=== PATIENT | male | born 1980 | race African-American/Black ===

== ENCOUNTER 2019-06-27 06:57 | Emergency (ER) | payer OTHER ==
[~2019-06-27] VITALS: Ht 180.3 cm; Wt 97.7 kg
[2019-06-27] MEDS ORDERED: ONDANSETRON PF 4 MG/2 ML VIAL. IVP ONE ×2 (07:15→10:30)
[2019-06-27] MEDS ORDERED: IV NORMAL SALINE 1,000ML 1,000 ML IV ONE (07:15)
--- NOTE | 2019-06-27 07:16 | PHYS DOC ---
Adult General Chief Complaint Chief Complaint: abdominal pain HPI HPI 39-year-old male presents with vomiting and abdominal pain. He's had 4 episodes of vomiting this morning. He also has some left lower quadrant abdominal pain. He was concerned there was some speckles of blood in the emesis. He denies di arrhea. The abdominal pain as a mild to moderate cramping sensation. He denies dysuria or increased sure if frequency. He has no fever or chills. He does have diffuse achiness. Review of Systems Review of Systems Constitutional: Denies fever or chills [] Eyes: Denies change in visual acuity, redness, or eye pain [] HENT: Denies nasal congestion or sore throat [] Respiratory: Denies cough or shortness of breath [] Cardiovascular: No additional information not addressed in HPI [] GI: Left lower quadrant abdominal pain, nausea, vomiting. Denies bloody stools or diarrhea [] : Denies dysuria or hematuria [] Musculoskeletal: Denies back pain or joint pain [] Integument: Denies rash or skin lesions [] Neurologic: Denies headache, focal weakness or sensory changes [] Endocrine: Denies polyuria or polydipsia [] All other systems were reviewed and found to be within normal limits, except as documented in this note. Current Medications Current Medications Current Medications Medications (Trade) Dose Ordered Sig/Buck Start Time Stop Time Status Last Admin Dose Admin Ondansetron HCl (Zofran) 4 mg 1X ONCE 06/27/19 07:15 06/27/19 07:16 UNV Sodium Chloride 1,000 ml @ 1,000 mls/hr 1X ONCE 06/27/19 07:15 06/27/19 08:14 UNV Physical Exam Physical Exam Constitutional: Well developed, well nourished, no acute distress, non-toxic appearance. [] HENT: Normocephalic, atraumatic, bilateral external ears normal, oropharynx moist, no oral exudates, nose normal. [] Eyes: PERRLA, EOMI, conjunctiva normal, no discharge. [] Neck: Normal range of motion, no tenderness, supple, no stridor. [] Cardiovascular:Heart rate regular rhythm, no murmur [] Lungs & Thorax: Bilateral breath sounds clear to auscultation [] Abdomen: Bowel sounds normal, soft, LLQ tenderness without guarding, no masses, no pulsatile masses. [] Skin: Warm, dry, no erythema, no rash. [] Back: No tenderness, no CVA tenderness. [] Extremities: No tenderness, no cyanosis, no clubbing, ROM intact, no edema. [] Neurologic: Alert and oriented X 3, normal motor function, normal sensory function, no focal deficits noted. [] Psychologic: Affect normal, judgement normal, mood normal. [] EKG EKG [] Radiology/Procedures Radiology/Procedures [] Impressions: Study: CT abdomen/pelvis with intravenous contrast Indication: Left lower quadrant pain. Vomiting. Comparison: None. Technique: Helical CT imaging performed of the abdomen and pelvis after the intravenous administration of 75 cc Omnipaque 300 contrast. Sagittal and coronal reformats were obtained. One or more of the following individualized dose reduction techniques were utilized for this examination: 1. Automated exposure control 2. Adjustment of the mA and/or kV according to patient size 3. Use of iterative reconstruction technique. Findings: Chest: Motion degraded evaluation of the lower lungs and heart. No acute abnormality is identified. Small ill-defined nodule versus a region of atelectasis at the lateral right lower lobe, image 4 series 2, measuring 4.5 mm. Liver: A few subcentimeter low-attenuation foci are identified such as along the gallbladder fossa on image 22 series 2 and within the right hepatic lobe on image 22 series 2 as well which are too small to fully characterize but statistically most likely to represent cysts or hemangiomas. No follow-up imaging is needed per consensus recommendation based on imaging criteria. Gallbladder/Biliary Tree: Unremarkable. Pancreas: Unremarkable. Spleen: Within normal limits for size. Adrenal Glands: Unremarkable. Kidneys/Ureters/Bladder: Symmetric kidney size and enhancement. No collecting system dilatation. Unremarkable urinary bladder. Reproductive Organs: Unremarkable. Colon: No pericolonic inflammatory changes or suspicious region of wall thickening. Appendix: Trace amount of fluid and fatty stranding around the appendix such as on image 53 series 2 however the appendix is normal in caliber at 5.5 mm and this is favored unlikely related to appendicitis. Small Bowel: Scattered loops of fluid-filled and dilated small bowel loops mainly within the central to lower abdomen with the greatest degree of dilatation measuring up to approximately 4 cm at the left lower quadrant on image 20 series 3. The duodenum and proximal jejunum are mostly collapsed and there is intermittent collapse of the far distal small bowel. Edematous wall thickening of a few segments of small bowel such is seen at the left lower quadrant, image 47 series 2. Collapsed small bowel loops in the right lower quadrant/upper pelvis, image 69 series 2, with surrounding free fluid. Small amount of free fluid within the left lower quadrant. Scattered foci of increased density within the small bowel lumen. No pneumatosis is appreciated. Stomach: Outpouching along the gastric cardia region could represent a diverticulum, image 17 series 2. No gastric emphysema or suspicious wall thickening. Radiodense foci within the gastric lumen Vasculature: Normal aortic caliber. Patent portal veins. Lymph Nodes: Unremarkable. Peritoneum and Body Wall: As above, small amount of free fluid most notable in the right more so than left lower quadrants. No pneumoperitoneum. Bones: Scattered Schmorl's nodes.. No advanced arthrosis of the visualized spine or at the hips. No erosive changes at the sacroiliac joints. Miscellaneous: None. Impression: Fluid distended and dilated small bowel loops mainly at the mid to lower abdomen and particularly at the left lower quadrant. No significant dilatation of the duodenum/proximal jejunum nor at the far distal small bowel. Superimposed regions of edematous small bowel wall thickening and a small amount of free fluid within the lower abdomen. The appearance is concerning for a small bowel obstruction with transitioning at the lower abdomen and potentially a closed-loop obstruction given the pattern of small bowel involvement. A manifestation of an underlying inflammatory bowel disease such as Crohn's is not entirely excluded though absence of involvement at the terminal ileum goes against this etiology. Recommend correlation with patient history. No pneumatosis or perforation. FOR INTERNAL CODING PURPOSES RESULT CODE: (C) The findings were discussed with Dr. Ambrose by telephone on 06/27/2019 at 0820 hours. Electronically signed by: LIVIA CORTES MD (06/27/2019 8:23 AM) [facility] DICTATED AND SIGNED BY: LIVIA CORTES MD DATE: 06/27/19822 CC: TERENCE AMBROSE DO; PCP,NO ~ Course & Med Decision Making Course & Med Decision Making Pertinent Labs and Imaging studies reviewed. (See chart for details) The patient's labs are unremarkable. His CT of the abdomen and pelvis is concerning for small bowel obstruction. See official read for more details. We will place an NG tube to intermittent suction and admit the patient to the hospital. I spoke with Dr. Yañez, general surgeon and he agrees nasogastric tube is appropriate and admission. The patient will be transferred to [facility]. Spoke with the hospitalist, Dr. montez and he has accepted patient for transfer and admission. [] Dragon Disclaimer Dragon Disclaimer This electronic medical record was generated, in whole or in part, using a voice recognition dictation system. Departure Departure: Impression: Primary Impression: Small bowel obstruction Disposition: XFER SHT-TRM HOSP Condition: STABLE Referrals: PCP,NO (PCP) TERENCE AMBROSE DO Jun 27, 2019 07:16
[2019-06-27] MEDS ORDERED: IOHEXOL 300 MG/ML 75 ML VIAL. IV ONE (07:30)
[2019-06-27 07:36] VITALS: BP 151/97
[2019-06-27 07:42] LABS: BASO % 0 % (0-3); EOS % 0 % (0-3); HEMATOCRIT 46.3 % (39.0-53.0); HEMOGLOBIN 15.9 g/dL (13.0-17.5); LYMPH # 0.8 x10^3/uL (1.0-4.8); LYMPH % 7 % (24-48); MEAN CORPUSCULAR HEMOGLOBIN 32 pg (25-35); MEAN CORPUSCULAR HGB CONC 34 g/dL (31-37); MEAN CORPUSCULAR VOLUME 93 fL (79-100); MONO # 0.3 x10^3/uL (0.0-1.1); MONO % 3 % (0-9); NEUT # 9.7 x10^3uL (1.8-7.7); NEUT % 89 % (31-73); PLATELET COUNT 176 x10^3/uL (140-400); RED BLOOD COUNT 4.96 x10^6/uL (4.30-5.70); RED CELL DISTRIBUTION WIDTH 13.4 % (11.5-14.5); WHITE BLOOD COUNT 10.9 x10^3/uL (4.0-11.0)
[2019-06-27 07:52] LABS: CALCIUM 8.9 mg/dL (8.5-10.1); CREATININE 0.9 mg/dL (0.7-1.3); GFR 114.3
[2019-06-27 07:59] LABS: ALBUMIN 3.8 g/dL (3.4-5.0); ALBUMIN/GLOBULIN RATIO 0.9 (1.0-1.7); TOTAL BILIRUBIN 0.4 mg/dL (0.2-1.0); TOTAL PROTEIN 8.1 g/dL (6.4-8.2)
[2019-06-27 08:02] LABS: INFLUENZA A PATIENT NEGATIVE (NEGATIVE); INFLUENZA B PATIENT NEGATIVE (NEGATIVE)
--- NOTE | 2019-06-27 08:26 | RAD ---
Study: CT abdomen/pelvis with intravenous contrast Indication: Left lower quadrant pain. Vomiting. Comparison: None. Technique: Helical CT imaging performed of the abdomen and pelvis after the intravenous administration of 75 cc Omnipaque 300 contrast. Sagittal and coronal reformats were obtained. One or more of the following individualized dose reduction techniques were utilized for this examination: 1. Automated exposure control 2. Adjustment of the mA and/or kV according to patient size 3. Use of iterative reconstruction technique. Findings: Chest: Motion degraded evaluation of the lower lungs and heart. No acute abnormality is identified. Small ill-defined nodule versus a region of atelectasis at the lateral right lower lobe, image 4 series 2, measuring 4.5 mm. Liver: A few subcentimeter low-attenuation foci are identified such as along the gallbladder fossa on image 22 series 2 and within the right hepatic lobe on image 22 series 2 as well which are too small to fully characterize but statistically most likely to represent cysts or hemangiomas. No follow-up imaging is needed per consensus recommendation based on imaging criteria. Gallbladder/Biliary Tree: Unremarkable. Pancreas: Unremarkable. Spleen: Within normal limits for size. Adrenal Glands: Unremarkable. Kidneys/Ureters/Bladder: Symmetric kidney size and enhancement. No collecting system dilatation. Unremarkable urinary bladder. Reproductive Organs: Unremarkable. Colon: No pericolonic inflammatory changes or suspicious region of wall thickening. Appendix: Trace amount of fluid and fatty stranding around the appendix such as on image 53 series 2 however the appendix is normal in caliber at 5.5 mm and this is favored unlikely related to appendicitis. Small Bowel: Scattered loops of fluid-filled and dilated small bowel loops mainly within the central to lower abdomen with the greatest degree of dilatation measuring up to approximately 4 cm at the left lower quadrant on image 20 series 3. The duodenum and proximal jejunum are mostly collapsed and there is intermittent collapse of the far distal small bowel. Edematous wall thickening of a few segments of small bowel such is seen at the left lower quadrant, image 47 series 2. Collapsed small bowel loops in the right lower quadrant/upper pelvis, image 69 series 2, with surrounding free fluid. Small amount of free fluid within the left lower quadrant. Scattered foci of increased density within the small bowel lumen. No pneumatosis is appreciated. Stomach: Outpouching along the gastric cardia region could represent a diverticulum, image 17 series 2. No gastric emphysema or suspicious wall thickening. Radiodense foci within the gastric lumen Vasculature: Normal aortic caliber. Patent portal veins. Lymph Nodes: Unremarkable. Peritoneum and Body Wall: As above, small amount of free fluid most notable in the right more so than left lower quadrants. No pneumoperitoneum. Bones: Scattered Schmorl's nodes.. No advanced arthrosis of the visualized spine or at the hips. No erosive changes at the sacroiliac joints. Miscellaneous: None. Impression: Fluid distended and dilated small bowel loops mainly at the mid to lower abdomen and particularly at the left lower quadrant. No significant dilatation of the duodenum/proximal jejunum nor at the far distal small bowel. Superimposed regions of edematous small bowel wall thickening and a small amount of free fluid within the lower abdomen. The appearance is concerning for a small bowel obstruction with transitioning at the lower abdomen and potentially a closed-loop obstruction given the pattern of small bowel involvement. A manifestation of an underlying inflammatory bowel disease such as Crohn's is not entirely excluded though absence of involvement at the terminal ileum goes against this etiology. Recommend correlation with patient history. No pneumatosis or perforation. FOR INTERNAL CODING PURPOSES RESULT CODE: (C) The findings were discussed with Dr. Shah by telephone on 06/27/2019 at 0820 hours. Electronically signed by: LIVIA CORTES MD (06/27/2019 8:23 AM) [facility]
[2019-06-27] MEDS ORDERED: IV DEXTROSE 5% - 0.9 % NACL 1,000 ML IV ONE (10:00)
[2019-06-27] MEDS ORDERED: MORPHINE SULFATE 2 MG/ML DISP.SYRIN. IV ONE (10:30)
== END 2019-06-27 10:55 | disposition short-term general hospital (02) ==
LOC: ER 06:57
DX: K56.609 Unspecified intestinal obstruction, unspecified as to partial versus complete obstruction (principal)
CPT/HCPCS: 36415; 74177; 80053; 83605; 85025; 87804; 96361; 96374; 96375; 99285; J2270; J2405; Q9967; J7030

== ENCOUNTER 2019-07-07 17:45 | Emergency (ER) | payer OTHER ==
[~2019-07-07] VITALS: Ht 180.3 cm; Wt 99.1 kg
[2019-07-07] MEDS ORDERED: SENN-121 PO (18:36)
--- NOTE | 2019-07-07 18:36 | PHYS DOC ---
Past History Past Medical History: No Pertinent History Past Surgical History: Other Additional Past Surgical Histo: Small bowel resection Smoking: Quit Greater Than 1 Year Alcohol Use: Sober Additional Alcohol Information: drank 20 yrs ago Drug Use: Marijuana Social History Narrative: none recently Adult General Chief Complaint Chief Complaint: WOUND CHECK HPI HPI 39-year-old male presents with report of recent abdominal surgery for obstructed bowel by Dr. Yañez at [facility] 10 days ago. Patient was discharged from the facility yesterday. Presents today due to bleeding from midline vertical incision. Reports they had not previously addressed at upon his discharge. Today reports the incision might have slightly widened. Denies any fever or chills. Reports next appointment with Dr. Yañez isn't until July 15. Patient also reports he has yet to fill his prescriptions for pain and nausea. Reports his continued to have some nausea. Reports has been having bowel movements. Reports is currently not on any stool softeners. Review of Systems Review of Systems Constitutional: Denies fever or chills Eyes: Denies redness or eye pain HENT: Denies nasal congestion or sore throat Respiratory: Denies cough or shortness of breath Cardiovascular: Denies chest pain or palpitations GI: Denies abdominal pain; reports distention and nausea : Denies dysuria or hematuria Musculoskeletal: Denies back pain or joint pain Integument: Denies rash or skin lesions; reports bleeding from midline abdominal incision Neurologic: Denies headache, focal weakness or sensory changes Complete systems were reviewed and found to be within normal limits, except as documented in this note. Allergies Allergies Allergies Coded Allergies Type Severity Reaction Last Updated Verified No Known Drug Allergies 07/07/19 No Physical Exam Physical Exam Constitutional: Well developed, well nourished, no acute distress, non-toxic appearance HENT: Normocephalic, atraumatic, oropharynx moist Eyes: Conjunctiva normal, no discharge Neck: Normal range of motion, no tenderness, supple Cardiovascular: Heart rate normal, regular rhythm Lungs & Thorax: Bilateral breath sounds clear to auscultation, no wheezing Abdomen: Soft, no tenderness, distended, midline vertical incision with slight dehiscence, no surrounding erythema, no purulent discharge Skin: Warm, dry, no erythema, no rash, wound evaluation as above Extremities: No tenderness, ROM intact, no edema Neurologic: Alert and oriented X 3, no focal deficits noted Psychologic: Affect normal, judgment normal Current Patient Data Vital Signs Vital Signs Date Time Temp Pulse Resp B/P (MAP) Pulse Ox O2 Delivery O2 Flow Rate FiO2 07/07/19 17:57 98.5 124 20 145/92 (109) 98 Room Air EKG EKG [] Radiology/Procedures Radiology/Procedures [] Course & Med Decision Making Course & Med Decision Making Patient presents for evaluation of recent surgical site. Slight dehiscence noted. NO active bleeding. No surrounding erythema. Wound care performed with placement of Mastisol and steri-strips to prevent further dehiscence. Patient reports having bowel movements but continued distention. Also reports has not yet filled Rx for nausea meds or pain meds. Reports is not on any stool softner at this time. Stool softner and zofran ODT provided. Patient advised to follow more closely with Dr. Yañez for further evaluation prior to 07/16/19. Patient stable for discharge with outpatient follow-up with PCP/Gen surgery. Discussed findings and plan with patient, who acknowledges understanding and agreement. Dragon Disclaimer Dragon Disclaimer This electronic medical record was generated, in whole or in part, using a voice recognition dictation system. Departure Departure: Impression: Primary Impression: Encounter for wound care Additional Impression: Hx of resection of small bowel Disposition: HOME, SELF-CARE Condition: STABLE Referrals: PCPMORALES (PCP) Patient Instructions: Tissue Adhesive Wound Care, [id number] Scripts Sennosides/Docusate Sodium (Colace 2-in-1 Tablet) 1 Each Tablet 1 TAB PO QHS PRN for CONSTIPATION, #30 TAB 0 Refills Prov: EMILIA ALBARADO DO 07/07/19 Problem Qualifiers EMILIA ALBARADO DO Jul 07, 2019 18:36
[2019-07-07] MEDS ORDERED: DOCUSATE SODIUM 100 MG CAPSULE PO ONE (18:45)
[2019-07-07] MEDS ORDERED: ONDANSETRON ODT 4 MG TAB.RAPDIS PO ONE (18:45)
[2019-07-07 18:50] VITALS: BP 141/97
== END 2019-07-07 18:50 | disposition home or self-care (01) ==
LOC: ER 17:45
DX: Z48.01 Encounter for change or removal of surgical wound dressing (principal); K91.840 Postprocedural hemorrhage of a digestive system organ or structure following a digestive system procedure; Z87.891 Personal history of nicotine dependence
CPT/HCPCS: 99283; Q0162

== ENCOUNTER 2019-07-11 02:17 | Emergency (ER) | payer OTHER ==
[~2019-07-11] VITALS: Ht 180.3 cm; Wt 98.0 kg
[~2019-07-11 02:17] MED LIST: SENN-121 PO
[2019-07-11 02:50] LABS: BASO # 0.2 x10^3/uL (0.0-0.2); BASO % 1 % (0-3); EOS # 0.1 x10^3/uL (0.0-0.7); EOS % 0 % (0-3); HEMATOCRIT 43.7 % (39.0-53.0); HEMOGLOBIN 14.7 g/dL (13.0-17.5); LYMPH # 2.5 x10^3/uL (1.0-4.8); LYMPH % 19 % (24-48); MEAN CORPUSCULAR HEMOGLOBIN 31 pg (25-35); MEAN CORPUSCULAR HGB CONC 34 g/dL (31-37); MEAN CORPUSCULAR VOLUME 93 fL (79-100); MONO # 1.2 x10^3/uL (0.0-1.1); MONO % 9 % (0-9); NEUT # 9.3 x10^3uL (1.8-7.7); NEUT % 70 % (31-73); PLATELET COUNT 312 x10^3/uL (140-400); RED BLOOD COUNT 4.69 x10^6/uL (4.30-5.70); RED CELL DISTRIBUTION WIDTH 13.4 % (11.5-14.5); WHITE BLOOD COUNT 13.2 x10^3/uL (4.0-11.0)
[2019-07-11 02:58] LABS: CREATININE 1.1 mg/dL (0.7-1.3); GFR 90.6; POTASSIUM 3.1 mmol/L (3.5-5.1)
[2019-07-11] MEDS ORDERED: CONTRAST GIVEN MC PRN (03:00)
[2019-07-11] MEDS ORDERED: ONDANSETRON PF 4 MG/2 ML VIAL. IVP ONE (03:00)
[2019-07-11] MEDS ORDERED: IV NORMAL SALINE 1,000ML 1,000 ML IV ONE ×2 (03:00→05:15)
[2019-07-11] MEDS ORDERED: FAMOTIDINE 20 MG/2 ML VIAL IVP ONE (03:00)
[2019-07-11] MEDS ORDERED: IOHEXOL 300 MG/ML 75 ML VIAL. IV ONE (03:00)
[2019-07-11 03:06] LABS: ALBUMIN 3.5 g/dL (3.4-5.0); ALBUMIN/GLOBULIN RATIO 0.9 (1.0-1.7); TOTAL BILIRUBIN 0.5 mg/dL (0.2-1.0); TOTAL PROTEIN 7.6 g/dL (6.4-8.2)
--- NOTE | 2019-07-11 03:59 | RAD ---
CT ABD PELV W/ IV CONTRST ONLY History: Abdominal pain. Distention. History of small bowel obstruction. Technique: After the administration of intravenous contrast, CT imaging was performed of the abdomen and pelvis. Multiplanar images are reviewed. Exposure: One or more of the following individualized dose reduction techniques were utilized for this examination: 1. Automated exposure control 2. Adjustment of the mA and/or kV according to patient size 3. Use of iterative reconstruction technique. Comparison: June 27, 2019 Findings: Lower chest: Bibasilar linear atelectasis. 3 mm right lower lobe pulmonary nodule (image 7), unchanged. Abdomen and pelvis: Tiny right hepatic lobe hypodensities, too small to further characterize, unchanged. The spleen, adrenal glands, and pancreas unremarkable. Contracted gallbladder. Normal appearance of the kidneys. No hydronephrosis. Diffusely dilated small bowel throughout the abdomen with relative tapering of the terminal ileum. Multifocal small bowel wall thickening. Air-filled appendix. Multiple mildly enlarged mesenteric lymph nodes, increased compared to prior. No ascites. No pneumatosis. No portal venous gas. No pneumoperitoneum. Bones: No pathologic osseous lesions. Impression: 1. Diffusely severely dilated small bowel with fluid with relative tapering at the terminal ileum, may represent small bowel obstruction or diffuse ileus. 2. Multiple mildly enlarged mesenteric lymph nodes, increased compared to prior. Recommend follow-up. 3. Right lower lobe pulmonary nodule, unchanged. Recommend one-year follow-up if high risk. Electronically signed by: London Baptiste DO (07/11/2019 3:56 AM) [id number]
[2019-07-11 04:01] LABS: % BANDS 13 % (0-9); % LYMPHS 22 % (24-48); % MONOS 7 % (0-10); % SEGS 58 % (35-66)
[2019-07-11 04:02] LABS: PLT ESTIMATE ADEQUATE (ADEQUATE); TOXIC GRANULATION SLIGHT; TOXIC VACUOLATION SLIGHT
[2019-07-11 05:24] LABS: AMPHETAMINE/METHAMPHETAMINE NEG (NEG); BARBITURATES NEG (NEG); BENZODIAZEPINES NEG (NEG); CANNABINOIDS NEG (NEG); COCAINE NEG (NEG); METHADONE NEG (NEG); OPIATES POS (NEG); PHENCYCLIDINE NEG (NEG)
[2019-07-11 05:30] LABS: BACTERIA,URINE FEW /HPF (0-FEW); BILIRUBIN,URINE NEG (NEG); CLARITY,URINE CLEAR; COLOR,URINE AMBER; GLUCOSE,URINE NEG (NEG); NITRITE,URINE NEG (NEG); RBC,URINE OCC /HPF (0-2); SQUAMOUS EPITHELIAL CELL,UR OCC /LPF; WBC,URINE OCC /HPF (0-4)
--- NOTE | 2019-07-11 05:44 | PHYS DOC ---
Past History Past Medical History: No Pertinent History Past Surgical History: Other Additional Past Surgical Histo: Small bowel resection Smoking: Quit Greater Than 1 Year Alcohol Use: None Drug Use: Marijuana Social History Narrative: drug use 20 years ago Adult General Chief Complaint Chief Complaint: ABDOMINAL PAIN HPI HPI 39-year-old male presents with report of progressive abdominal distention and pain with associated nausea and vomiting. Patient reports history of recent small bowel resection by Dr. Yañez (general surgery) at [facility] on 06/27/2019. Patient reports has noticed some increased distention since discharge. Patient reports he has not yet followed with Dr. Yañez postoperatively. Reports has an appointment next week. Denies fever or chills. Patient does report recent evaluation in the ER due to bleeding from surgical wound with concern for possible dehiscence. Patient reports his been taking his pain medication. Reports his had bowel movements last of which was yesterday. Review of Systems Review of Systems Constitutional: Denies fever or chills; reports malaise Eyes: Denies redness or eye pain HENT: Denies nasal congestion or sore throat Respiratory: Denies cough or shortness of breath Cardiovascular: Denies chest pain or palpitations GI: Reports abdominal pain, distention, nausea, and vomiting : Denies dysuria or hematuria Musculoskeletal: Denies back pain or joint pain Integument: Denies rash or skin lesions Neurologic: Denies headache, focal weakness or sensory changes Complete systems were reviewed and found to be within normal limits, except as documented in this note. Current Medications Current Medications Current Medications Medications (Trade) Dose Ordered Sig/Buck Start Time Stop Time Status Last Admin Dose Admin Famotidine (Pepcid Vial) 20 mg 1X ONCE 07/11/19 03:00 07/11/19 03:01 DC 07/11/19 03:40 20 MG Fentanyl Citrate (Fentanyl 2ml Vial) 50 mcg 1X ONCE 07/11/19 05:30 07/11/19 05:31 UNV Info (Do NOT chart on this entry -- for MONITORING) 1 each PRN DAILY PRN 07/11/19 03:00 07/13/19 02:59 Iohexol (Omnipaque 300 Mg/ml) 75 ml 1X ONCE 07/11/19 03:00 07/11/19 03:01 DC 07/11/19 03:25 75 ML Ondansetron HCl (Zofran) 4 mg 1X ONCE 07/11/19 03:00 07/11/19 03:01 DC 07/11/19 03:41 4 MG Sodium Chloride 1,000 ml @ 1,000 mls/hr 1X ONCE 07/11/19 05:15 07/11/19 06:14 UNV 07/11/19 05:15 1,000 MLS/HR Allergies Allergies Allergies Coded Allergies Type Severity Reaction Last Updated Verified No Known Drug Allergies 07/07/19 No Physical Exam Physical Exam Constitutional: Well developed, well nourished, uncomfortable, non-toxic gail earance HENT: Normocephalic, atraumatic, oropharynx moist Eyes: Conjunctiva normal, no discharge Neck: Normal range of motion, no tenderness, supple Cardiovascular: Heart rate normal, regular rhythm Lungs & Thorax: Bilateral breath sounds clear to auscultation, no wheezing Abdomen: Hard, tympanic abdomen with significant distention, guarding noted, midline vertical incision- clean/dry/intact with steristrips Skin: Warm, dry, no erythema, no rash, incision site as above Extremities: No tenderness, ROM intact, no edema Neurologic: Alert and oriented X 3, normal motor function, normal sensory function, no focal deficits noted Psychologic: Affect anxious, judgment normal Current Patient Data Vital Signs Vital Signs Date Time Temp Pulse Resp B/P (MAP) Pulse Ox O2 Delivery O2 Flow Rate FiO2 07/11/19 03:41 18 97 Room Air 07/11/19 02:30 98.4 91 164/95 (118) Lab Results Laboratory Tests Test 07/11/19 02:30 07/11/19 02:50 White Blood Count 13.2 x10^3/uL (4.0-11.0) H Red Blood Count 4.69 x10^6/uL (4.30-5.70) Hemoglobin 14.7 g/dL (13.0-17.5) Hematocrit 43.7 % (39.0-53.0) Mean Corpuscular Volume 93 fL (79-100) Mean Corpuscular Hemoglobin 31 pg (25-35) Mean Corpuscular Hemoglobin Concent 34 g/dL (31-37) Red Cell Distribution Width 13.4 % (11.5-14.5) Platelet Count 312 x10^3/uL (140-400) Neutrophils (%) (Auto) 70 % (31-73) Lymphocytes (%) (Auto) 19 % (24-48) L Monocytes (%) (Auto) 9 % (0-9) Eosinophils (%) (Auto) 0 % (0-3) Basophils (%) (Auto) 1 % (0-3) Neutrophils # (Auto) 9.3 x10^3uL (1.8-7.7) H Lymphocytes # (Auto) 2.5 x10^3/uL (1.0-4.8) Monocytes # (Auto) 1.2 x10^3/uL (0.0-1.1) H Eosinophils # (Auto) 0.1 x10^3/uL (0.0-0.7) Basophils # (Auto) 0.2 x10^3/uL (0.0-0.2) Segmented Neutrophils % 58 % (35-66) Band Neutrophils % 13 % (0-9) H Lymphocytes % 22 % (24-48) L Monocytes % 7 % (0-10) Toxic Granulation Slight Toxic Vacuolation Slight Platelet Estimate Adequate (ADEQUATE) Large Platelets Few Giant Platelets Few Prothrombin Time 10.8 SEC (9.4-11.4) Prothrombin Time INR 1.0 (0.9-1.1) Activated Partial Thromboplast Time 24 SEC (23-33) Sodium Level 130 mmol/L (136-145) L Potassium Level 3.1 mmol/L (3.5-5.1) L Chloride Level 91 mmol/L (98-107) L Carbon Dioxide Level 31 mmol/L (21-32) Anion Gap 8 (6-14) Blood Urea Nitrogen 13 mg/dL (8-26) Creatinine 1.1 mg/dL (0.7-1.3) Estimated GFR (Cockcroft-Gault) 90.6 BUN/Creatinine Ratio 12 (6-20) Glucose Level 154 mg/dL (70-99) H Calcium Level 8.0 mg/dL (8.5-10.1) L Total Bilirubin 0.5 mg/dL (0.2-1.0) Aspartate Amino Transferase (AST) 37 U/L (15-37) Alanine Aminotransferase (ALT) 120 U/L (16-63) H Alkaline Phosphatase 95 U/L (46-116) Total Protein 7.6 g/dL (6.4-8.2) Albumin 3.5 g/dL (3.4-5.0) Albumin/Globulin Ratio 0.9 (1.0-1.7) L Lipase 476 U/L (73-393) H Lactic Acid Level 1.6 mmol/L (0.4-2.0) EKG EKG [] Radiology/Procedures Radiology/Procedures PROCEDURE: CT ABD PELV W/ IV CONTRST ONLY CT ABD PELV W/ IV CONTRST ONLY History: Abdominal pain. Distention. History of small bowel obstruction. Technique: After the administration of intravenous contrast, CT imaging was performed of the abdomen and pelvis. Multiplanar images are reviewed. Exposure: One or more of the following individualized dose reduction techniques were utilized for this examination: 1. Automated exposure control 2. Adjustment of the mA and/or kV according to patient size 3. Use of iterative reconstruction technique. Comparison: June 27, 2019 Findings: Lower chest: Bibasilar linear atelectasis. 3 mm right lower lobe pulmonary nodule (image 7), unchanged. Abdomen and pelvis: Tiny right hepatic lobe hypodensities, too small to further characterize, unchanged. The spleen, adrenal glands, and pancreas unremarkable. Contracted gallbladder. Normal appearance of the kidneys. No hydronephrosis. Diffusely dilated small bowel throughout the abdomen with relative tapering of the terminal ileum. Multifocal small bowel wall thickening. Air-filled appendix. Multiple mildly enlarged mesenteric lymph nodes, increased compared to prior. No ascites. No pneumatosis. No portal venous gas. No pneumoperitoneum. Bones: No pathologic osseous lesions. Impression: 1. Diffusely severely dilated small bowel with fluid with relative tapering at the terminal ileum, may represent small bowel obstruction or diffuse ileus. 2. Multiple mildly enlarged mesenteric lymph nodes, increased compared to prior. Recommend follow-up. 3. Right lower lobe pulmonary nodule, unchanged. Recommend one-year follow-up if high risk. Electronically signed by: London Baptiste DO (07/11/2019 3:56 AM) [id number] CXR/KUB (preliminary interpretation by JESENIA granados): S/p NGT placement. NGT appears to be in stomach Course & Med Decision Making Course & Med Decision Making Pertinent Labs and Imaging studies reviewed. (See chart for details) Patient with recent bowel resection with Dr. Yañez (general surgery) at [facility] on 06/27/19 presents with report of progressive abdominal distention and pain with associated nausea and vomiting. Pain/nausea addressed. IVF hydration given. Labs obtained and posted to chart. WBC elevated with bandemia. Lactic acid WNL. Hypokalemia also noted. CT abd/pelvis with diffuse severely dilated small bowel which tapers at level of terminal ileum concerning for reoccurrence of small bowel obstruction. NGT placed. with confirmatory XR obtained. Discussed case with Dr. Gray (database administration associate for Dr. Yañez, general surgery) who is in agreement with consultation. Discussed case with Dr. Freeman (hospitalist at [facility]) who is in agreement with transfer for admission. Discussed findings and plan with patient, who acknowledges understanding and agreement. Of note CT scan also noted right lower lobe pulmonary nodule measuring [address] of [address] results provided to patient with instructions to give to his family physician for future repeat imaging/evaluation. Dragon Disclaimer Dragon Disclaimer This electronic medical record was generated, in whole or in part, using a voice recognition dictation system. Departure Departure: Impression: Primary Impression: Small bowel obstruction Additional Impressions: Hx of resection of small bowel Incidental pulmonary nodule Bandemia Hypokalemia Disposition: 05 TRANSFER OTHER ([facility]) Condition: STABLE Referrals: PCP,NO (PCP) Problem Qualifiers EMILIA ALBARADO DO Jul 11, 2019 05:44
--- NOTE | 2019-07-11 06:22 | RAD ---
KUB, CHEST AP ONLY History: NG tube placement Technique: Upright view of the chest. Supine view the abdomen. Comparison: CT July 11, 2019 Findings: Interval placement of enteric tube looped within the stomach with tip projecting over the gastric fundus. Low lung volumes with bibasilar linear atelectasis. No pneumothorax. Normal heart size. No pleural effusion. Diffusely dilated small bowel throughout the abdomen, unchanged. Contrast noted within the urinary bladder. Punctate densities within the right colon. Impression: 1. Interval placement enteric tube looped within the stomach with tip projecting over the gastric fundus. Electronically signed by: London Baptiste DO (07/11/2019 6:19 AM) [id number]
[2019-07-11 06:25] VITALS: BP 169/87
== END 2019-07-11 08:31 | disposition short-term general hospital (02) ==
LOC: ER 02:17
DX: K56.609 Unspecified intestinal obstruction, unspecified as to partial versus complete obstruction (principal); R91.1 Solitary pulmonary nodule; D72.825 Bandemia; E87.6 Hypokalemia; Z87.891 Personal history of nicotine dependence
CPT/HCPCS: 36415; 71045; 74018; 74177; 80053; 80307; 81001; 83605; 83690; 85007; 85025; 85610; 85730; 96361; 96374; 96375; 96376; 99285; J2405; J3010; J3490; Q9967; J7030